=== PATIENT | male | born 1945 | race Caucasian/White ===

== ENCOUNTER 2018-12-28 19:59 | Emergency (ER) | payer MEDICARE, BC | END 2018-12-28 20:45 | disposition left against medical advice (07) | LOC: JP.ED 19:59 | DX: Z53.21 Procedure and treatment not carried out due to patient leaving prior to being seen by health care provider (principal) ==

== ENCOUNTER 2020-02-02 18:48 | Emergency (ER) | payer MEDICARE, BC ==
--- NOTE | 2020-02-02 20:11 | EDM.PDOC ---
ED HPI GENERAL MEDICAL PROBLEM - General Chief Complaint: Fever Stated Complaint: LOW O2, CHILLS Time Seen by Provider: 02/02/20 19:58 Source of Information: Reports: Family History Limitations: Reports: Other (Patient has Lewy body dementia and is minimally verbal.) - History of Present Illness INITIAL COMMENTS - FREE TEXT/NARRATIVE: The family reports that the patient seemed more confused, having more jibberish verbal response and seemed more lethargic. He also started exhibiting rigors with shaking of the arms. He was recently hospitalized for aspiration pneumonia and had worsening of his last barium swallow test indicating a greater risk for aspiration of fluids and secretions. He does use thicket with his feedings. Family cares for him normally at home in [place], but he is up visiting his children at their cabin here. Onset: Today Duration: Recurring Associated Symptoms: Reports: Confusion, Cough, Fever/Chills, Malaise - Related Data Allergies Allergy/AdvReac Type Severity Reaction Status Date / Time carbidopa [From Sinemet] Allergy Confusion Verified 02/02/20 19:26 fludrocortisone Allergy Swelling Verified 02/02/20 19:26 levodopa [From Sinemet] Allergy Confusion Verified 02/02/20 19:26 Penicillins Allergy Rash Verified 02/02/20 19:26 tetracycline Allergy Rash Verified 02/02/20 19:26 pcn Allergy Rash Uncoded 02/02/20 19:26 Home Meds: Home Meds Donepezil HCl 10 mg PO DAILY 02/02/20 [History] Melatonin 6 mg PO BEDTIME 02/02/20 [History] Midodrine 10 mg PO TID 02/02/20 [History] Montelukast [Singulair] 10 mg PO BEDTIME 02/02/20 [History] Omeprazole Magnesium [Prilosec Otc] 20 mg PO DAILY 02/02/20 [History] Pyridostigmine [place] 60 mg PO TID 02/02/20 [History] Rasagiline [Azilect] 1 mg PO DAILY 02/02/20 [History] Sennosides [Senna] 34.4 mg PO BEDTIME 02/02/20 [History] Tamsulosin [Tamsulosin 24 Hr] 0.4 mg PO DAILY 02/02/20 [History] Vit A/Vit C/Vit E/Zinc/Copper [Preservision] 1 tab PO DAILY 02/02/20 [History] Past Medical History HEENT History: Reports: Impaired Vision Respiratory History: Reports: Pneumonia, Recurrent, Other (See Below) Other Respiratory History: aspiration Genitourinary History: Reports: Urinary Incontinence Musculoskeletal History: Reports: Other (See Below) Other Musculoskeletal History: weak and shuffling due to Parkinson's Neurological History: Reports: Parkinson's, Other (See Below) Other Neuro History: lewy body dementia - Past Surgical History GI Surgical History: Reports: None Musculoskeletal Surgical History: Reports: Shoulder Surgery Social & Family History - Tobacco Use Smoking Status *Q: Never Smoker Used Tobacco, but Quit: Yes Month/Year Tobacco Last Used: - Caffeine Use Caffeine Use: Reports: None - Recreational Drug Use Recreational Drug Use: No ED ROS GENERAL - Review of Systems Review Of Systems: Comprehensive ROS is negative, except as noted in HPI. (ROS is limited to what the family reports as the patient is mainly non-verbal due to his dementia) Respiratory: Reports: Shortness of Breath, Cough Endocrine: Reports: Fatigue ED EXAM, GENERAL - Physical Exam Exam: See Below Exam Limited By: No Limitations General Appearance: No Apparent Distress Eye Exam: Bilateral Eye: EOMI, PERRL Nose: Normal Inspection, Normal Mucosa Throat/Mouth: Normal Inspection, Normal Lips, Normal Oropharynx Head: Atraumatic Respiratory/Chest: No Respiratory Distress, No Accessory Muscle Use, Chest Non- Tender, Rhonchi (mild rhonchi in bases). No: Respiratory Distress, Rales, Wheezing, Stridor, Accessory Muscle Use, Retractions Cardiovascular: Normal Peripheral Pulses, Regular Rate, Rhythm, No Gallop, No JVD, No Murmur GI/Abdominal: Normal Bowel Sounds, Soft, Non-Tender, No Distention, No Abnormal Bruit Neurological: No Motor/Sensory Deficits, Inattentive, Slow to Respond Psychiatric: Flat Affect Skin Exam: Warm, Dry, Intact, Ecchymosis Course - Vital Signs Last Recorded V/S: Last Vital Signs Temp 38.3 C H 02/02/20 20:30 Pulse 68 02/02/20 20:30 Resp 18 02/02/20 20:30 BP 128/70 02/02/20 19:19 Pulse Ox 954 H 02/02/20 20:30 - Orders/Labs/Meds Orders: Active Orders 24 hr Category Date Time Status Chest 2V [CR] Stat Exams 02/02/20 20:04 Taken Acetaminophen [Tylenol] Med 02/02/20 21:44 Once 650 mg PO ONETIME ONE Labs: Laboratory Tests 02/02/20 02/02/20 02/02/20 Range/Units 20:19 20:19 20:24 WBC 11.8 H (4.5-11.0) K/uL RBC 4.69 (4.30-5.90) M/uL Hgb 14.5 (12.0-15.0) g/dL Hct 45.3 (40.0-54.0) % MCV 97 (80-98) fL MCH 31 (27-31) pg MCHC 32 (32-36) % Plt Count 273 (150-400) K/uL Neut % (Auto) 82 H (36-66) % Lymph % (Auto) 10 L (24-44) % [place] % (Auto) 7 H (2-6) % Eos % (Auto) 1 L (2-4) % Baso % (Auto) 0 (0-1) % Sodium 142 (140-148) mmol/L Potassium 4.4 (3.6-5.2) mmol/L Chloride 105 (100-108) mmol/L Carbon Dioxide 28 (21-32) mmol/L Anion Gap 8.6 (5.0-14.0) mmol/L BUN 14 (7-18) mg/dL Creatinine 1.2 (0.8-1.3) mg/dL Est Cr Clr Drug Dosing 54.83 mL/min Estimated GFR (MDRD) 59 L (>60) Glucose 107 H (74-106) mg/dL Lactic Acid (0.4-2.0) mmol/L Calcium 8.5 (8.5-10.1) mg/dL Total Bilirubin 0.5 (0.2-1.0) mg/dL AST 16 (15-37) U/L ALT 19 (12-78) U/L Alkaline Phosphatase 82 (46-116) U/L C-Reactive Protein 2.17 H (0.0-0.3) mg/dL Total Protein 7.5 (6.4-8.2) g/dL Albumin 3.3 L (3.4-5.0) g/dL Globulin 4.2 H (2.3-3.5) g/dL Albumin/Globulin Ratio 0.8 L (1.2-2.2) Urine Color Yellow (YELLOW) Urine Appearance Clear (CLEAR) Urine pH 7.5 (5.0-8.0) Ur Specific [place] 1.020 (1.008-1.030) Urine Protein 100 H (NEGATIVE) mg/dL Urine Glucose (UA) Negative (NEGATIVE) mg/dL Urine Ketones Trace H (NEGATIVE) mg/dL Urine Occult Blood Negative (NEGATIVE) Urine Nitrite Negative (NEGATIVE) Urine Bilirubin Negative (NEGATIVE) Urine Urobilinogen 0.2 (0.2-1.0) EU/dL Ur Leukocyte Esterase Negative (NEGATIVE) Urine RBC Not seen (0-5) Urine WBC Not seen (0-5) Ur Epithelial Cells Not seen Urine Bacteria Not seen 02/02/20 Range/Units 20:27 WBC (4.5-11.0) K/uL RBC (4.30-5.90) M/uL Hgb (12.0-15.0) g/dL Hct (40.0-54.0) % MCV (80-98) fL MCH (27-31) pg MCHC (32-36) % Plt Count (150-400) K/uL Neut % (Auto) (36-66) % Lymph % (Auto) (24-44) % [place] % (Auto) (2-6) % Eos % (Auto) (2-4) % Baso % (Auto) (0-1) % Sodium (140-148) mmol/L Potassium (3.6-5.2) mmol/L Chloride (100-108) mmol/L Carbon Dioxide (21-32) mmol/L Anion Gap (5.0-14.0) mmol/L BUN (7-18) mg/dL Creatinine (0.8-1.3) mg/dL Est Cr Clr Drug Dosing mL/min Estimated GFR (MDRD) (>60) Glucose (74-106) mg/dL Lactic Acid 1.7 (0.4-2.0) mmol/L Calcium (8.5-10.1) mg/dL Total Bilirubin (0.2-1.0) mg/dL AST (15-37) U/L ALT (12-78) U/L Alkaline Phosphatase (46-116) U/L C-Reactive Protein (0.0-0.3) mg/dL Total Protein (6.4-8.2) g/dL Albumin (3.4-5.0) g/dL Globulin (2.3-3.5) g/dL Albumin/Globulin Ratio (1.2-2.2) Urine Color (YELLOW) Urine Appearance (CLEAR) Urine pH (5.0-8.0) Ur Specific [place] (1.008-1.030) Urine Protein (NEGATIVE) mg/dL Urine Glucose (UA) (NEGATIVE) mg/dL Urine Ketones (NEGATIVE) mg/dL Urine Occult Blood (NEGATIVE) Urine Nitrite (NEGATIVE) Urine Bilirubin (NEGATIVE) Urine Urobilinogen (0.2-1.0) EU/dL Ur Leukocyte Esterase (NEGATIVE) Urine RBC (0-5) Urine WBC (0-5) Ur Epithelial Cells Urine Bacteria Meds: Medications Discontinued Medications Generic Name Dose Route Start Last Admin Trade Name Freq PRN Reason Stop Dose Admin Ceftriaxone Sodium 1 gm 02/02/20 21:34 Rocephin IM 02/02/20 21:35 ONETIME ONE Lidocaine HCl Confirm 02/02/20 21:38 Xylocaine-Mpf 1% Administered 02/02/20 21:39 Dose 5 ml .ROUTE .STK-MED ONE - Re-Assessments/Exams Free Text/Narrative Re-Assessment/Exam: 02/02/20 21:48 The patient has remained vitally stable and is not requiring oxygenation at this time. I feel that he could safely go home on antibiotics for his aspiration pneumonia recurrence with the caveat that he return should he develop any worsening of his symptoms. The family is in agreement to this. All questions were answered prior to discharge. Departure - Departure Time of Disposition: 22:00 Disposition: Home, Self-Care 01 Condition: Fair Clinical Impression: Aspiration pneumonia Pneumonia Qualifiers: Pneumonia type: aspiration pneumonia Aspiration pneumonia type: unspecified Laterality: bilateral Lung location: lower lobe of lung Qualified Code(s): J69.0 - Pneumonitis due to inhalation of food and vomit - Discharge Information *PRESCRIPTION DRUG MONITORING PROGRAM REVIEWED*: Not Applicable Instructions: Aspiration Pneumonia Referrals: PCP,None [Primary Care Provider] - Forms: ED Department Discharge Sepsis Event Note (ED) - Evaluation Sepsis Screening Result: No Definite Risk - Focused Exam Vital Signs: Vital Signs Temp Pulse Resp BP Pulse Ox 08/10/20 20:30 38.3 C H 68 18 954 H 02/02/20 20:01 78 95 02/02/20 19:19 36.8 C 101 H 16 128/70 89 L - Problem List Review Problem List Initiated/Reviewed/Updated: Yes - My Orders Last 24 Hours: My Active Orders 02/02/20 20:04 Chest 2V [CR] Stat 02/02/20 21:44 Acetaminophen [Tylenol] 650 mg PO ONETIME ONE I will be sending the patient home on a course of clindamycin 300mg TID for 10 days for recurrent aspiration pneumonia - Assessment/Plan Last 24 Hours: My Active Orders 02/02/20 20:04 Chest 2V [CR] Stat 02/02/20 21:44 Acetaminophen [Tylenol] 650 mg PO ONETIME ONE
[2020-02-02] MEDS ORDERED: cefTRIAXone 1 GM Vial IM ONE (21:34)
[2020-02-02] MEDS ORDERED: Acetaminophen Soln 650 MG/20.3 ML UD Cup PO ONE (21:44)
--- NOTE | 2020-02-05 08:59 | CR ---
CHEST: 2 view CLINICAL HISTORY:Cough, fever COMPARISON:None FINDINGS: There are patchy bilateral lower lobe densities. Heart size and pulmonary vascularity are normal. There is a convexity along the left margin of the aortic arch. There are no effusions. Impression: Patchy bilateral lower lobe infiltrates, likely pneumonia. Short-term follow-up recommended until clear. There is a convexity along the left margin of the aortic arch. This may represent some atherosclerotic and warning. Prior images would be helpful to determine chronology. If there are no prior images CT should be considered
== END 2020-02-02 22:17 | disposition home or self-care (01) ==
LOC: JP.ED 18:48
DX: J69.0 Pneumonitis due to inhalation of food and vomit (principal); G31.83 Neurocognitive disorder with Lewy bodies; F02.80 Dementia in other diseases classified elsewhere, unspecified severity, without behavioral disturbance, psychotic disturbance, mood disturbance, and anxiety; Z87.891 Personal history of nicotine dependence; Z88.8 Allergy status to other drugs, medicaments and biological substances; Z88.0 Allergy status to penicillin; Z88.1 Allergy status to other antibiotic agents; Z79.899 Other long term (current) drug therapy
CPT/HCPCS: 36415; 71046; 80053; 81001; 83605; 85025; 86140; 96372; 99284; A9270; J0696; J2001